=== PATIENT | male | born 1940 | race Caucasian/White ===

== ENCOUNTER 2018-03-23 16:24 | Inpatient (IN) | payer BC ==
[2018-03-23 17:32] LABS: HEMATOCRIT 34.4 % (42.0-52.0); HEMOGLOBIN 11.3 g/dl (13.5-17.5); MEAN CORPUSCULAR HGB CONC 32.8 g/dl (32.0-36.5); MEAN CORPUSCULAR VOLUME 88.2 fl (80.0-96.0); PLATELET COUNT, AUTOMATED 120 10^3/uL (150-450); RED CELL DISTRIBUTION WIDTH 15.9 % (11.5-14.5)
[2018-03-23] MEDS: NS 1,000 ML IV ×2 (17:40→23:26)
[2018-03-23 17:56] LABS: ADD MANUAL DIFFER YES; DIFF SLIDE NUMBER 282; POS COUNT POS FLAG; POSITIVE DIFF POS FLAG; POSITIVE MORPH POS FLAG; WHITE BLOOD COUNT 63.9 10^3/uL (4.0-10.0)
[2018-03-23 17:57] LABS: ALBUMIN 3.5 GM/DL (3.2-5.2); ALKALINE PHOSPHATASE 73 U/L (45-117); ALT/SGPT 34 U/L (12-78); ANION GAP 10 MEQ/L (8-16); AST/SGOT 22 U/L (7-37); BILIRUBIN,DIRECT 0.6 MG/DL (0.0-0.2); BILIRUBIN,TOTAL 4.2 MG/DL (0.2-1.0); BLOOD UREA NITROGEN 23 MG/DL (7-18); CALCIUM LEVEL 8.1 MG/DL (8.8-10.2); CARBON DIOXIDE LEVEL 23 MEQ/L (21-32); CHLORIDE LEVEL 104 MEQ/L (98-107); CREATININE FOR GFR 1.33 MG/DL (0.70-1.30); GLOMERULAR FILTRATION RATE 55.5 (>42); GLUCOSE, FASTING 138 MG/DL (70-100); SODIUM LEVEL 137 MEQ/L (136-145); TOTAL PROTEIN 6.2 GM/DL (6.4-8.2)
[2018-03-23 19:22] LABS: KETONE, URINE AUTO RFX TRACE mg/dL (NEGATIVE); MUCUS, URINE RFX SMALL (NEGATIVE); RBC, URINE AUTO RFX 8 /HPF (0-3); SQUAM EPITHELIAL CELL UR AURFX 1 /HPF (0-6); TRANSITIONAL EPITHELIAL AU RFX <1 /HPF
[2018-03-23 19:25] LABS: LEUKOCYTE ESTERASE UR AUTO RFX 2+ (NEGATIVE); NITRITE, URINE AUTO RFX POSITIVE (NEGATIVE); WBC, URINE AUTO RFX 124 /HPF (0-3)
[2018-03-23 19:44] LABS: ATYPICAL LYMPH 43 % (0-5); BANDS 1 % (< 11); BASOPHILS 2 % (0-4); LYMPHOCYTES 13 % (16-52); MONOCYTES 9 % (0-8); NEUTROPHILS 32 % (35-75)
[2018-03-23 19:50] LABS: PLATELET ESTIMATE DECREASED (NORMAL); POIKILOCYTOSIS 2+
[2018-03-23 19:51] LABS: BURR CELLS 1+; OVALOCYTES 1+
[2018-03-23 19:55] LABS: ACANTHOCYTES 1+
[2018-03-23] MEDS: LevoFLOXacin IV 750 MG in APPROPRIATE DILUENT 1 EA IV (20:00)
[2018-03-23] MEDS: ACETAMINOPHEN TAB 650MG DOSE (2X325MG) PO (21:25)
[2018-03-23] MEDS ORDERED: ONDANSETRON 4 MG TAB (S0181) PO (21:30)
[2018-03-23] MEDS: cefTRIAXone SOD 1 GM in D5W MINI-BAG PLUS 50 ML IV (22:00)
[2018-03-23] MEDS ORDERED: GLUCOSE 4 GM CHEW TABLET PO (22:15)
[2018-03-23] MEDS ORDERED: DEXTROSE 50% 50 ML SYRINGE IV (22:15)
[2018-03-23] MEDS ORDERED: GLUCAGON FOR INJ 1 MG VIAL (J1610) SC (22:15)
[2018-03-23 22:56] LABS: BEDSIDE GLUCOSE 153 MG/DL (83-110)
[2018-03-23] MEDS: HEPARIN SOD (PORCINE) 5000 UNITS/ML VIAL SC (23:23)
[2018-03-23] MEDS: METOPROLOL TART 25 MG TABLET PO (23:23)
[2018-03-23] MEDS: SIMVASTATIN 40 MG TAB PO (23:24)
[2018-03-23] MEDS: TAMSULOSIN 0.4 MG CAP PO (23:24)
[2018-03-23] MEDS: OMEPRAZOLE 20 MG CAP PO (23:25)
[2018-03-23] MEDS: metFORMIN 850 MG TAB PO (23:44)
[2018-03-23] MEDS: LEVEMIR (INSULIN DETEMIR) 1 UNITS/0.01ML SC (23:45)
[2018-03-24] MEDS: ACETAMINOPHEN TAB 650MG DOSE (2X325MG) PO (05:51)
[2018-03-24] MEDS: HEPARIN SOD (PORCINE) 5000 UNITS/ML VIAL SC (05:51)
[2018-03-24 06:09] LABS: HEMOGLOBIN 9.4 g/dl (13.5-17.5); MEAN CORPUSCULAR HEMOGLOBIN 28.9 pg (27.0-33.0); MEAN CORPUSCULAR HGB CONC 33.6 g/dl (32.0-36.5); MEAN CORPUSCULAR VOLUME 86.2 fl (80.0-96.0); RED BLOOD COUNT 3.25 10^6/uL (4.30-6.10); RED CELL DISTRIBUTION WIDTH 15.9 % (11.5-14.5)
[2018-03-24 06:29] LABS: ESTIMATED AVERAGE GLUCOSE 146 MG/DL (60-110); HEMOGLOBIN A1c 6.7 %
[2018-03-24 06:31] LABS: ALBUMIN 2.8 GM/DL (3.2-5.2); ALBUMIN/GLOBULIN RATIO 1.12 (1.00-1.93); ALKALINE PHOSPHATASE 64 U/L (45-117); ALT/SGPT 26 U/L (12-78); ANION GAP 9 MEQ/L (8-16); AST/SGOT 21 U/L (7-37); BILIRUBIN,TOTAL 2.3 MG/DL (0.2-1.0); BLOOD UREA NITROGEN 22 MG/DL (7-18); CALCIUM LEVEL 7.5 MG/DL (8.8-10.2); CARBON DIOXIDE LEVEL 23 MEQ/L (21-32); CHLORIDE LEVEL 106 MEQ/L (98-107); CREATININE FOR GFR 1.22 MG/DL (0.70-1.30); GLOMERULAR FILTRATION RATE > 60.0 (>42); GLUCOSE, FASTING 102 MG/DL (70-100); POTASSIUM SERUM 3.7 MEQ/L (3.5-5.1); SODIUM LEVEL 138 MEQ/L (136-145); TOTAL PROTEIN 5.3 GM/DL (6.4-8.2)
[2018-03-24 06:59] LABS: PLATELET COUNT, AUTOMATED 95 10^3/uL (150-450); POS COUNT POS FLAG; WHITE BLOOD COUNT 53.9 10^3/uL (4.0-10.0)
[2018-03-24] MEDS: HumaLOG INSULIN (NovoLOG) PER UNIT SC ×3 (07:29→17:30)
[2018-03-24 07:59] LABS: REASON FOR REVIEW WBC/LEUKEMIA/BLAST; SLIDE REVIEW Report; SOURCE PERIPHERAL SMEAR
[2018-03-24] MEDS: TAMSULOSIN 0.4 MG CAP PO ×2 (09:29→21:10)
[2018-03-24] MEDS: CLOPIDOGREL 75 MG TAB PO (09:29)
[2018-03-24] MEDS: METOPROLOL TART 25 MG TABLET PO ×2 (09:32→21:09)
[2018-03-24] MEDS: LOSARTAN 50 MG TAB PO (09:32)
[2018-03-24 11:21] LABS: BEDSIDE GLUCOSE 164 MG/DL (83-110)
[2018-03-24] MEDS: NS 1,000 ML IV (12:00)
[2018-03-24] MEDS: DUTASTERIDE 0.5 MG CAP (AVODART) PO (13:13)
[2018-03-24] MEDS: ENOXAPARIN 40 MG/0.4 ML SYRINGE (J1650) SC (13:13)
[2018-03-24] MEDS ORDERED: HEPARIN SOD (PORCINE) 5000 UNITS/ML VIAL SQ (14:00)
[2018-03-24 16:52] LABS: BEDSIDE GLUCOSE 105 MG/DL (83-110)
[2018-03-24 20:17] LABS: BEDSIDE GLUCOSE 118 MG/DL (83-110)
[2018-03-24] MEDS: OMEPRAZOLE 20 MG CAP PO (21:08)
[2018-03-24] MEDS: cefTRIAXone SOD 2 GM in D5W MINI-BAG PLUS 50 ML IV (21:08)
[2018-03-24] MEDS: LEVEMIR (INSULIN DETEMIR) 1 UNITS/0.01ML SC (21:08)
[2018-03-24] MEDS: SIMVASTATIN 40 MG TAB PO (21:10)
[2018-03-25] MEDS: ACETAMINOPHEN TAB 650MG DOSE (2X325MG) PO (00:26)
[2018-03-25] MEDS: NS 1,000 ML IV (00:27)
[2018-03-25] MEDS: HumaLOG INSULIN (NovoLOG) PER UNIT SC ×3 (07:30→17:53)
[2018-03-25 07:49] LABS: BEDSIDE GLUCOSE 88 MG/DL (83-110)
[2018-03-25] MEDS: TAMSULOSIN 0.4 MG CAP PO ×2 (08:13→20:10)
[2018-03-25] MEDS: ENOXAPARIN 40 MG/0.4 ML SYRINGE (J1650) SC (08:13)
[2018-03-25] MEDS: DUTASTERIDE 0.5 MG CAP (AVODART) PO (08:13)
[2018-03-25] MEDS: LOSARTAN 50 MG TAB PO (08:14)
[2018-03-25] MEDS: METOPROLOL TART 25 MG TABLET PO ×2 (08:14→20:11)
[2018-03-25] MEDS: CLOPIDOGREL 75 MG TAB PO (08:14)
[2018-03-25 09:20] LABS: MEAN CORPUSCULAR HEMOGLOBIN 28.9 pg (27.0-33.0); MEAN CORPUSCULAR HGB CONC 33.3 g/dl (32.0-36.5); MEAN CORPUSCULAR VOLUME 86.7 fl (80.0-96.0); PLATELET COUNT, AUTOMATED 101 10^3/uL (150-450); RED BLOOD COUNT 3.46 10^6/uL (4.30-6.10); RED CELL DISTRIBUTION WIDTH 16.1 % (11.5-14.5)
[2018-03-25 09:31] LABS: ADD MANUAL DIFFER YES; DIFF SLIDE NUMBER 112; POS COUNT POS FLAG; POSITIVE DIFF POS FLAG; POSITIVE MORPH POS FLAG; WHITE BLOOD COUNT 68.5 10^3/uL (4.0-10.0)
[2018-03-25 09:51] LABS: ALBUMIN 2.8 GM/DL (3.2-5.2); ALBUMIN/GLOBULIN RATIO 1.08 (1.00-1.93); ALKALINE PHOSPHATASE 81 U/L (45-117); ALT/SGPT 29 U/L (12-78); ANION GAP 7 MEQ/L (8-16); ANISOCYTOSIS 1+; AST/SGOT 24 U/L (7-37); ATYPICAL LYMPH 27 % (0-5); BLOOD UREA NITROGEN 13 MG/DL (7-18); CALCIUM LEVEL 7.4 MG/DL (8.8-10.2); CARBON DIOXIDE LEVEL 24 MEQ/L (21-32); CHLORIDE LEVEL 109 MEQ/L (98-107); CREATININE FOR GFR 1.15 MG/DL (0.70-1.30); EOSINOPHILS 1 % (0-5); GLOMERULAR FILTRATION RATE > 60.0 (>42); GLUCOSE, FASTING 125 MG/DL (70-100); LYMPHOCYTES 42 % (16-52); MAGNESIUM LEVEL 1.9 MG/DL (1.8-2.4); MONOCYTES 12 % (0-8); NEUTROPHILS 18 % (35-75); POIKILOCYTOSIS 2+; POTASSIUM SERUM 4.3 MEQ/L (3.5-5.1); SODIUM LEVEL 140 MEQ/L (136-145); TOTAL PROTEIN 5.4 GM/DL (6.4-8.2)
[2018-03-25 09:52] LABS: PLATELET ESTIMATE DECREASED (NORMAL); SMUDGE CELLS 1+
[2018-03-25 11:26] LABS: BEDSIDE GLUCOSE 183 MG/DL (83-110)
[2018-03-25 16:36] LABS: BEDSIDE GLUCOSE 209 MG/DL (83-110)
[2018-03-25] MEDS: SENOKOT S TAB PO (16:38)
[2018-03-25 19:42] LABS: BEDSIDE GLUCOSE 250 MG/DL (83-110)
[2018-03-25] MEDS ORDERED: FLEET ENEMA PR (20:00)
[2018-03-25] MEDS: cefTRIAXone SOD 2 GM in D5W MINI-BAG PLUS 50 ML IV (20:09)
[2018-03-25] MEDS: MIRALAX *UNIT DOSE* 17GM PACKET PO (20:10)
[2018-03-25] MEDS: SIMVASTATIN 40 MG TAB PO (20:10)
[2018-03-25] MEDS: OMEPRAZOLE 20 MG CAP PO (20:11)
[2018-03-25] MEDS: LEVEMIR (INSULIN DETEMIR) 1 UNITS/0.01ML SC (20:12)
[2018-03-26 06:33] LABS: HEMATOCRIT 29.8 % (42.0-52.0); HEMOGLOBIN 9.9 g/dl (13.5-17.5); MEAN CORPUSCULAR HEMOGLOBIN 29.1 pg (27.0-33.0); MEAN CORPUSCULAR HGB CONC 33.2 g/dl (32.0-36.5); MEAN CORPUSCULAR VOLUME 87.6 fl (80.0-96.0); PLATELET COUNT, AUTOMATED 105 10^3/uL (150-450)
[2018-03-26 06:37] LABS: ADD MANUAL DIFFER YES; DIFF SLIDE NUMBER 50; POS COUNT POS FLAG; POSITIVE DIFF POS FLAG; POSITIVE MORPH POS FLAG; WHITE BLOOD COUNT 50.8 10^3/uL (4.0-10.0)
[2018-03-26 06:56] LABS: ALBUMIN 2.5 GM/DL (3.2-5.2); ALBUMIN/GLOBULIN RATIO 0.78 (1.00-1.93); ALKALINE PHOSPHATASE 86 U/L (45-117); ALT/SGPT 33 U/L (12-78); ANION GAP 9 MEQ/L (8-16); AST/SGOT 24 U/L (7-37); BILIRUBIN,TOTAL 0.5 MG/DL (0.2-1.0); BLOOD UREA NITROGEN 9 MG/DL (7-18); C REACTIVE PROTEIN QUANTITATIV 7.32 MG/DL (0.00-0.30); CALCIUM LEVEL 7.9 MG/DL (8.8-10.2); CARBON DIOXIDE LEVEL 25 MEQ/L (21-32); CHLORIDE LEVEL 107 MEQ/L (98-107); GLOMERULAR FILTRATION RATE > 60.0 (>42); GLUCOSE, FASTING 147 MG/DL (70-100); SODIUM LEVEL 141 MEQ/L (136-145); TOTAL PROTEIN 5.7 GM/DL (6.4-8.2)
[2018-03-26 07:10] LABS: ATYPICAL LYMPH 28 % (0-5); BASOPHILS 1 % (0-4); EOSINOPHILS 4 % (0-5); LYMPHOCYTES 35 % (16-52); MONOCYTES 12 % (0-8); NEUTROPHILS 20 % (35-75)
[2018-03-26 07:11] LABS: ANISOCYTOSIS 2+; PLATELET ESTIMATE DECREASED (NORMAL); POIKILOCYTOSIS 2+; POLYCHROMASIA 1+
[2018-03-26] MEDS: LOSARTAN 50 MG TAB PO (08:47)
[2018-03-26] MEDS: AUGMENTIN 875 MG TAB PO (08:47)
[2018-03-26] MEDS: CLOPIDOGREL 75 MG TAB PO (08:47)
[2018-03-26] MEDS: DUTASTERIDE 0.5 MG CAP (AVODART) PO (08:47)
[2018-03-26] MEDS: TAMSULOSIN 0.4 MG CAP PO (08:47)
[2018-03-26] MEDS: METOPROLOL TART 25 MG TABLET PO (08:47)
[2018-03-26] MEDS: HumaLOG INSULIN (NovoLOG) PER UNIT SC (08:48)
[2018-03-26] MEDS: ENOXAPARIN 40 MG/0.4 ML SYRINGE (J1650) SC (08:48)
[2018-03-26] MEDS: MIRALAX *UNIT DOSE* 17GM PACKET PO (09:00)
[2018-03-26 11:32] LABS: BEDSIDE GLUCOSE 163 MG/DL (83-110)
== END 2018-03-26 11:55 | disposition home or self-care (01) | DRG 720 ==
LOC: M ED 16:24 → M ED INP 21:28 → M MSPAV 22:39
DX: A41.9 Sepsis, unspecified organism (principal); N17.9 Acute kidney failure, unspecified; C91.10 Chronic lymphocytic leukemia of B-cell type not having achieved remission; E11.9 Type 2 diabetes mellitus without complications; N10 Acute pyelonephritis; B96.29 Other Escherichia coli [E. coli] as the cause of diseases classified elsewhere; N39.0 Urinary tract infection, site not specified; E78.5 Hyperlipidemia, unspecified; I10 Essential (primary) hypertension; I25.10 Atherosclerotic heart disease of native coronary artery without angina pectoris; Z95.2 Presence of prosthetic heart valve; K57.30 Diverticulosis of large intestine without perforation or abscess without bleeding; Z79.899 Other long term (current) drug therapy; Z79.4 Long term (current) use of insulin; R65.20 Severe sepsis without septic shock